=== PATIENT | male | born 1995 | race Caucasian/White ===

== ENCOUNTER 2020-11-13 09:37 | Emergency (ER) | payer OTHER, SELFPAY ==
[~2020-11-13] VITALS: Ht 175.3 cm; Wt 87.9 kg
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
[2020-11-13 11:06] VITALS: BP 132/63
== END 2020-11-13 11:12 | disposition home or self-care (01) ==
LOC: M ED 09:37
DX: S62.232A Other displaced fracture of base of first metacarpal bone, left hand, initial encounter for closed fracture (principal); W22.8XXA Striking against or struck by other objects, initial encounter; Y92.9 Unspecified place or not applicable; Y93.89 Activity, other specified; Y99.9 Unspecified external cause status; F17.220 Nicotine dependence, chewing tobacco, uncomplicated

== ENCOUNTER 2023-12-23 22:33 | Emergency (ER) | payer OTHER ==
[~2023-12-23] VITALS: Ht 177.8 cm; Wt 85.8 kg
[2023-12-24] MEDS ORDERED: KETOROLAC 30 MG/ML 1ML VIAL IM ONE (00:20)
[2023-12-24] MEDS ORDERED: diazePAM 5MG TABLET PO ONE (00:20)
[2023-12-24] MEDS ORDERED: METH-1164 PO ×2 (00:22→01:18)
[2023-12-24] MEDS ORDERED: PRED20TA PO ×2 (00:22→01:18)
[2023-12-24] MEDS ORDERED: KETO10TAB PO ×2 (00:22→01:18)
[2023-12-24] MEDS ORDERED: dexAMETHasone 20MG/5ML VIAL IM ONE (00:25)
[2023-12-24] MEDS ORDERED: KETOROLAC TROMETHAMINE 10 MG TAB PO ONE (00:35)
[2023-12-24] MEDS ORDERED: dexAMETHasone 4 MG TAB PO ONE (00:35)
[2023-12-24 01:19] VITALS: BP 123/60; TEMP 97.1; O2SAT 98
== END 2023-12-24 01:28 | disposition home or self-care (01) ==
LOC: M ED 22:33
DX: M54.42 Lumbago with sciatica, left side (principal); F17.200 Nicotine dependence, unspecified, uncomplicated